=== PATIENT | male | born 1950 | race Caucasian/White ===

== ENCOUNTER 2018-07-29 00:50 | Emergency (ER) | payer MEDICARE, BC ==
[2018-07-29] MEDS ORDERED: Ketorolac 60 MG/2 ML SDV IM ONE (01:08)
[2018-07-29] MEDS ORDERED: Ondansetron 4 MG/2 ML SDV IVPUSH ONE (01:08)
[2018-07-29] MEDS ORDERED: Tamsulosin 0.4 MG Cap.ER PO ONE (01:08)
--- NOTE | 2018-07-29 01:11 | EDM.PDOC ---
ED HPI GENERAL MEDICAL PROBLEM - General Chief Complaint: Genitourinary Problem Stated Complaint: kidney stone Time Seen by Provider: 07/29/18 01:10 Source of Information: Reports: Patient History Limitations: Reports: No Limitations - History of Present Illness INITIAL COMMENTS - FREE TEXT/NARRATIVE: Parminder is a 67-year-old male with right flank pain since this afternoon. Patient to be moderate to severe associated with vomiting, characteristic of KIDNEY stone he had 3 years ago. He's had no fever chills Right flank Pain Score (Numeric/FACES): 9 - Related Data Allergies Allergy/AdvReac Type Severity Reaction Status Date / Time No Known Allergies Allergy Verified 07/29/18 01:03 Home Meds: Home Meds Aspirin [Halfprin] 81 mg PO DAILY 07/29/18 [History] Gabapentin [Neurontin] 300 mg PO DAILY 07/29/18 [History] Metoprolol Succinate 25 mg PO DAILY 07/29/18 [History] Omeprazole 20 mg PO DAILY 07/29/18 [History] Rosuvastatin [Crestor] 40 mg PO DAILY 07/29/18 [History] Social & Family History - Tobacco Use Smoking Status *Q: Former Smoker Used Tobacco, but Quit: Yes Month/Year Tobacco Last Used: 2002 - Caffeine Use Caffeine Use: Reports: Coffee - Recreational Drug Use Recreational Drug Use: No ED ROS GENERAL - Review of Systems Review Of Systems: ROS reveals no pertinent complaints other than HPI. ED EXAM, RENAL/ - Physical Exam Exam: See Below Exam Limited By: No Limitations General Appearance: Alert, WD/WN Ears: Normal External Exam, Normal Canal, Hearing Grossly Normal, Normal TMs Nose: Normal Inspection, Normal Mucosa, No Blood Neck: Normal Inspection, Supple, Non-Tender, Full Range of Motion Course - Vital Signs Last Recorded V/S: Last Vital Signs Temp 97.4 F 07/29/18 00:51 Pulse 65 07/29/18 01:32 Resp 18 07/29/18 01:32 BP 156/94 H 07/29/18 01:32 Pulse Ox 98 07/29/18 01:32 - Orders/Labs/Meds Labs: Laboratory Tests 07/29/18 Range/Units 01:11 Urine Color Yellow (YELLOW) Urine Appearance Clear (CLEAR) Urine pH 6.0 (5.0-6.5) Ur Specific Lo[place] 1.020 (1.010-1.025) Urine Protein Negative (NEGATIVE) mg/dL Urine Glucose (UA) Normal (NEGATIVE) mg/dL Urine Ketones Negative (NEGATIVE) mg/dL Urine Occult Blood Negative (NEGATIVE) Urine Nitrite Negative (NEGATIVE) Urine Bilirubin Negative (NEGATIVE) Urine Urobilinogen Normal (NEGATIVE) mg/dL Ur Leukocyte Esterase Negative (NEGATIVE) Urine RBC 0-5 (0) Urine WBC 0-5 (0) Ur Squamous Epith Cells Few H (NS,R,O) Urine Bacteria Few H (NS) Meds: Medications Discontinued Medications Generic Name Dose Route Start Last Admin Trade Name Santiagoq PRN Reason Stop Dose Admin Ketorolac Tromethamine 60 mg 07/29/18 01:08 07/29/18 01:20 Toradol IM 07/29/18 01:09 60 mg ONETIME ONE Administration Ondansetron HCl 4 mg 07/29/18 01:08 07/29/18 01:15 Zofran IVPUSH 07/29/18 01:09 Not Given ONETIME ONE Ondansetron HCl 4 mg 07/29/18 01:14 07/29/18 01:19 Zofran IM 07/29/18 01:15 4 mg ONETIME ONE Administration Tamsulosin HCl 0.4 mg 07/29/18 01:08 07/29/18 01:19 Flomax PO 07/29/18 01:09 0.4 mg ONETIME ONE Administration Departure - Departure Time of Disposition: 19:14 Disposition: Home, Self-Care 01 Condition: Good Clinical Impression: Kidney stone - Discharge Information Instructions: Kidney Stones, [id number] Referrals: Jelani Byrnes MD [Primary Care Provider] - Forms: ED Department Discharge Additional Instructions: Drink plenty of fluids. Follow-up with primary care physician on Monday if needed. - Problem List & Annotations (1) Kidney stone SNOMED Code(s): 14286484 Code(s): N20.0 - CALCULUS OF KIDNEY Status: Acute - Problem List Review Problem List Initiated/Reviewed/Updated: Yes - Assessment/Plan Plan: Ketoralac ,Zofran and Flomax IM.Improved.Sent home
[2018-07-29] MEDS ORDERED: Ondansetron 4 MG/2 ML SDV IM ONE (01:14)
== END 2018-07-29 01:54 | disposition home or self-care (01) ==
LOC: FB.ED 00:50
DX: N20.0 Calculus of kidney (principal); Z87.442 Personal history of urinary calculi; Z79.82 Long term (current) use of aspirin; Z79.899 Other long term (current) drug therapy; Z87.891 Personal history of nicotine dependence
CPT/HCPCS: 81001; 96372; 99284; A9270-GY; J1885; J2405